=== PATIENT | male | born 1995 | race African-American/Black ===

== ENCOUNTER 2017-11-21 18:00 | Emergency (ER) | payer SELFPAY ==
[~2017-11-21] VITALS: Ht 177.8 cm; Wt 131.0 kg
[2017-11-21 20:46] VITALS: BP 128/81
== END 2017-11-21 20:55 | disposition home or self-care (01) ==
LOC: ER 19:30
DX: H10.9 Unspecified conjunctivitis (principal)
CPT/HCPCS: 99283